=== PATIENT | male | born 1995 | race Caucasian/White ===

== ENCOUNTER 2023-11-19 02:32 | Emergency (ER) | payer BC, OTHER ==
[~2023-11-19] VITALS: Ht 175.3 cm; Wt 77.3 kg
[2023-11-19 02:39] VITALS: BP 144/98; PULSE 123; RESP 18; TEMP 98.8; O2SAT 97
== END 2023-11-19 03:20 ==
LOC: ER 02:33
DX: F10.129 Alcohol abuse with intoxication, unspecified (principal); Z88.0 Allergy status to penicillin; V89.2XXA Person injured in unspecified motor-vehicle accident, traffic, initial encounter; Y92.410 Unspecified street and highway as the place of occurrence of the external cause; Y92.89 Other specified places as the place of occurrence of the external cause; Y99.8 Other external cause status
CPT/HCPCS: 99283